=== PATIENT | female | born 1960 ===

== ENCOUNTER → 2024-06-20 10:50 | Outpatient (BNVA) | payer MEDICARE, MEDICAID, SELFPAY | PROVIDERS: Visit Provider Internal Medicine | DX: E05.20 Thyrotoxicosis with toxic multinodular goiter without thyrotoxic crisis or storm (principal) | CPT/HCPCS: 99204 ==

== ENCOUNTER → 2024-10-26 11:08 | Outpatient (BNVA) | payer MEDICARE, MEDICAID, OTHER, SELFPAY | PROVIDERS: Visit Provider Internal Medicine | DX: E05.00 Thyrotoxicosis with diffuse goiter without thyrotoxic crisis or storm (principal) | CPT/HCPCS: 99215 ==

== ENCOUNTER 2024-12-14 10:14 | Outpatient (CLI) | payer MEDICARE, MEDICAID, SELFPAY ==
--- NOTE | 2024-12-14 10:30 | US_ITS ---
WS: [id number] ULTRASOUND-GUIDED LEFT THYROID NODULE FNA HISTORY: LEFT thyroid nodule. Biopsy recommended. Procedure, risks, and complications were explained to the patient. Consent has been obtained. Comparison: 10/23/2024. The skin is cleansed with ChloraPrep and anesthetized with 1% buffered lidocaine. FNA performed with 25 gauge needles. pulmonary function technologist is present to fix slides. US/US biopsy/FNA thyroid [id number] IMPRESSION: Uncomplicated FNA of a LEFT thyroid nodule. Final pathology results pending.
== END 2024-12-14 10:15 | disposition home or self-care (01) ==
LOC: RAD 10:16
PROVIDERS: PCP Nurse Practitioner Family; Visit Provider Internal Medicine
DX: E04.1 Nontoxic single thyroid nodule (principal)
CPT/HCPCS: 10005; 88173